=== PATIENT | female | born 2000 | race Caucasian/White ===

== ENCOUNTER 2022-11-07 07:56 | Day surgery (SDC) | payer MEDICAID, SELFPAY ==
--- NOTE | 2022-11-07 | IMM_PTH ---
PATIENT: PARAG MICHELE [place] [facility] [id number] AGE/SX: 22/F ROOM: RE11/07/[address]: Dr. Martir Ellison MD : 2000 BED: DIS: 11/07/2022 SPEC #: [id number] RECD: 11/10/22 13:42 STATUS: SOUPatrick REQ #: [id number] DORETHA: 11/07/22 00:[address]: Martir Ellison DEPT: IMMUNOHISTOCHEMISTRY RECD BY: Onelia Azevedo ENTERED: 11/10/22 13:46 SP TYPE: IMMUNO OTHR DR: No Primary Care Phys Tissues: A - Skin of leg, NOS D - Skin of leg, NOS Procedures: SMA (add) CD31 (add) CD34 (add) DESMIN (add) KI-67 (add) FACTOR VIII (add) MELAN-A (add) Vimentin (initial) S-100 (add) PHYSICIAN & INSTITUTION [address] [address] SPECIMEN INFORMATION: Tissue Source: A - Posterior right leg lesion, D - Deeper margin of anterior lesion, right distal leg Clinical Info: Leg lesions Specimen Number: [id number] A & D CPT code: 64492 x2, 44636 x16 METHODOLOGY: Deparaffinized sections of prefer/formalin-fixed tissue or PAP/DQ stained slides are incubated with monoclonal/polyclonal antibodies/oligonucleotide probes. Localization is made via biotin free immunoperoxidase method. Appropriate controls are performed and reacted as expected. Results on target cell population are indicated in the following table: RESULTS: ANTIBODY / CLONE RESULT Block A Vimentin (V9) positive CD31 (MILO/70A) negative Factor VIII (R Ag) negative CD34 (QBEnd-10) negative Actin (1A4) positive, weak Desmin (CE-R-11) negative Melan A (A103) negative S-100 (4C4.9) negative Ki-67 (30-9) positive, very low, <1% Block D Vimentin (V9) positive CD31 (MILO/70A) negative Factor VIII (R Ag) negative CD34 (QBEnd-10) negative Actin (1A4) positive, weak Desmin (CE-R-11) negative Melan A (A103) negative S-100 (4C4.9) negative Ki-67 (30-9) positive, very low, <1% These tests were developed and their performance characteristics determined by [facility]. They may not have been cleared or approved by the U.S. Food and Drug Administration. The FDA has determined that such clearance or approval is not necessary. The above immunohistochemical/dualISH markers are ordered and reviewed by the Pathologist. INTERPRETATION: A. Posterior right leg lesion, shave biopsy: Dermatofibroma. D. Deeper margin of anterior lesion, right distal leg, biopsy: Dermatofibroma. SJ:olga lidia 11/12/2022
--- NOTE | 2022-11-07 | LES_PTH ---
PATIENT: PARAG MICHELE LOC: [facility] – [place] U#:[id number] AGE/SX: 22/F ROOM: RE11/07/[address]: Dr. Martir Ellison MD : 2000 BED: DIS: 11/07/2022 SPEC #: [id number] RECD: 11/07/22 10:59 STATUS: YURIY RAÚL #: [id number] DORETHA: 11/07/22 00:[address]: Martir Ellison DEPT: SURGICAL PATHOLOGY RECD BY: Onelia Azevedo ENTERED: 11/07/22 12:16 SP TYPE: Lesion OTHR DR: No Primary Care Phys Tissues: A - Skin of leg, NOS B - Skin of leg, NOS C - Skin of leg, NOS D - Skin of leg, NOS Procedures: Frozen Section (charge) Surgery Specimen Level IV HEADER OPERATION: Excision lesions right anterior leg, right lateral leg PRE-OP DIAGNOSIS: 8 mm erythematous ulcerated lesion right anterior distal leg; 7 mm saldaña lesion right lateral distal leg; 7 mm saldaña lesion right posterior distal leg TISSUE SUBMITTED: A - Posterior right leg lesion, FS, B - Lateral right leg lesion, FS, C - Anterior right leg lesion, FS, D - Deep margin anterior right distal leg lesion, FS FROZEN SECTION DIAGNOSIS A. Posterior right leg lesion, shave biopsy: Spindle cell lesion, consistent with dermatofibroma. Deep margin is positive for lesion. B. Lateral right leg lesion, shave biopsy: Dermal fibrosis and hyperkeratosis. C. Anterior right leg lesion, shave biopsy: Dermal fibrosis and hyperkeratosis. Negative for carcinoma. D. Deeper margin of anterior lesion, right distal leg: Dermatofibroma. SMITA:olga lidia 11/07/2022 Case has been reviewed in consultation with Dr. Moreno who concurs with the above diagnosis. IDC:AM MICROSCOPIC DIAGNOSIS A. Posterior right leg lesion, shave biopsy: Dermatofibroma. See comment. B. Lateral right leg lesion, shave biopsy: Dermal fibrosis. Negative for carcinoma. C. Anterior right leg lesion, shave biopsy: Dermal fibrosis. Negative for carcinoma. D. Deeper margin of anterior lesion, right distal leg, biopsy: Dermatofibroma. See comment. SMITA:olga lidia 11/10/2022 COMMENT A. The lesion is present in the deep margin of the specimen. Immunohistochemistry ([id number]) supports the above diagnosis. D. Immunohistochemistry ([id number]) supports the above diagnosis. MICROSCOPIC DESCRIPTION Slides are reviewed. GROSS DESCRIPTION A - Received fresh for frozen section diagnosis labeled with the patient's name is a specimen designated posterior right leg lesion. The specimen consists of a piece of saldaña-white skin measuring 1.0 x 0.7 x 0.1 cm. The specimen is inked, serially sectioned and submitted entirely in one cassette for frozen section diagnosis. / : 11/07/2022 B - Received fresh for frozen section diagnosis labeled with the patient's name is a specimen designated lateral right leg lesion. The specimen consists of a piece of saldaña-white skin measuring 1.0 x 0.7 x 0.1 cm. The specimen is inked, serially sectioned and submitted entirely in one cassette for frozen section diagnosis. / : 11/07/2022 C - Received fresh for frozen section diagnosis labeled with the patient's name is a specimen designated anterior right leg lesion. The specimen consists of a piece of saldaña-white skin measuring 1.0 x 1.0 x 0.1 cm. The specimen is inked, serially sectioned and submitted entirely in one cassette for frozen section diagnosis. / : 11/07/2022 D - Received fresh for frozen section diagnosis labeled with the patient's name is a specimen designated deep margin anterior right distal leg lesion. The specimen consists of a piece of saldaña soft tissue measuring 1.0 x 0.5 x 0.1 cm. The specimen is inked, serially sectioned and submitted entirely in one cassette for frozen section diagnosis. / : 11/07/2022 TC:1 CPT: 55718 x4, 36699 x4
[2022-11-07 08:33] VITALS: BP 112/70; PULSE 78; RESP 16; TEMP 37.2; O2SAT 100; BMI 22.4
[2022-11-07 08:34] LABS: Internal QC Validated? YES +Cl - CLEAR BKGD; Pregnancy, Urine Negative Negative
[2022-11-07] MEDS: Lactated Ringers 1,000 ML 15 ML IV ×2 (08:44→11:58)
--- NOTE | 2022-11-07 09:32 | HP.PCM_ITS ---
History and Physical Date of Admission: 11/07/22 Allergies No Known Drug Allergies Allergy (Unknown, Verified 09/11/22 14:14) Other Medications NK 09/11/22 [History Confirmed 09/11/22] Is last menstrual period known: Yes Patient : No PFSH Medical History Basal cell carcinoma Dermatofibroma Neoplasm of skin of lower leg No pertinent past medical history Smoker Surgical History No pertinent past surgical history Family History Other No pertinent family history Social History Smoking Status: Current every day smoker counseling given: provider counseling and counseling >3 minutes alcohol intake: never substance use type: does not use How many days of moderate to strenuous exercise, like a brisk walk, did you do in the last 7 days: 5 frequency: 5-6 times per week HPI evaluation for TBSE Details: HISTORY OF PRESENT ILLNESS 22 year old woman presents for evaluation for TBSE. She has concerns about lesions on her right distal leg involving the anterior aspect, the lateral aspect, and the posterior aspect. These three lesions have increased in size over the last several months. Sometimes they will itch and she will scratch them which causes the anterior lesion to bleed occasionally. She denies trauma. She denies fever. She denies recent infection. She denies drainage except when she scratches them. She presents at this time for further evaluation and treatment. REVIEW OF SYSTEMS General - Denies fever, fatigue, and weight loss. Eyes - Denies cataracts and glaucoma. ENT - Denies nasal congestion and sore throat. Endocrine - Denies excessive thirst and urination. Skin - Denies skin cancer. Has enlarging lesions right distal leg x3. Musculoskeletal - Denies joint pain, joint stiffness, weakness of muscles and joints, back pain, and arthritis. Neuro - Denies headaches. Cardiovascular - Denies chest pain, fatigue, and shortness of breath with exertion. Psych - Denies anxiety and depression. Respiratory - Denies chronic cough and shortness of breath. Patient is a smoker. Gastrointestinal - Denies nausea, vomiting, diarrhea, and constipation. Hematologic - Denies abnormal bruising and bleeding. Genitourinary - Denies hematuria and urinary frequency. PHYSICAL EXAMINATION General - Alert and Oriented. HEENT - PERRL. EOMI. Throat is clear. No suspicious lesions noted. Neck - Supple and nontender. No cervical adenopathy. No suspicious lesions noted. Lungs - Clear to auscultation. Heart - Regular rate and rhythm. Abdomen - Soft and nondistended. Extremities - FROM. No axillary adenopathy. Radial pulses are palpable. No inguinal adenopathy. Dorsalis pedis pulses are palpable. On the right anterior distal leg is an erythematous lesion that measures 8 mm. Has some nodularity. Central area has some ulceration. Has irregular borders. Lesion is nontender. Clinically a basal cell carcinoma. On the right lateral distal leg is a tannish lesion that is firm and measures 7 mm. Has irregular borders. No ulceration. Lesion is nontender. On the right posterior distal leg is a tannish lesion that is firm and measures 7 mm. Has irregular borders. No ulceration. Lesion is nontender. No other suspicious lesions noted. Neuro - CN II-XII grossly intact. Psych - Normal mood and affect. ASSESSMENT 1. 8 mm erythematous ulcerated lesion right anterior distal leg, clinically basal cell carcinoma. 2. 7 mm tannish lesion right lateral distal leg, clinically dermatofibroma. 3. 7 mm tannish lesion right posterior distal leg, clinically dermatofibroma. 4. Smoker. PLAN Medical records reviewed. She has concerns about lesions on her right distal leg. The anterior lesion is clinically a basal cell carcinoma. The lateral lesion and posterior lesion are clinically dermatofibromas. Recommend operative intervention to excise these three lesions and send them to Pathology for analysis to rule out carcinoma and to establish a diagnosis. If carcinoma is present, then further excision will be done with skin graft reconstruction, possible skin flap reconstruction. If actinic damage is seen on the pathology specimen, will treat with Aldara cream as an outpatient which involves applying it to the lesions daily at night and in the morning wipe off the excess cream. Do this 5 days per week with weekends off for 6 weeks. Surgery can be done on an outpatient basis under local anesthesia and IV carmine tion. Patient was informed of the risks and complications of the procedure including alternatives to surgery. These were discussed with the patient personally. Patient voices understanding and wishes to proceed. Some of the risks and complications were included in a form from the [employer]. Potential risks and complications included but not inclusive of bleeding, infe ction, hematoma, bruising, swelling, loss of sensation to skin, partial or complete loss of skin flap and/or graft, wound breakdown, need for wound care, poor scarring, poor aesthetic outcome, intra operative cardiac or neurologic events, DVT, PE, and reaction to anesthesia. Encouraged patient to stop smoking as it may have deleterious effects on wound healing. It was recommended to the patient to use sunscreen when outside to help minimize darkening of the healing scars after surgery. Patient will be in [place] until 10/02/22. Will schedule the surgery after that. Coding Level of Care Code Off vis,new,level 4 Diagnoses Neoplasm of skin of lower leg D49.2 Basal cell carcinoma C44.91 Dermatofibroma D23.9 Smoker F17.200 Assessment and Plan (No Qualifiers) Assessment and Plan (1) Neoplasm of skin of lower leg: Status: Chronic Comment: 8 mm erythematous ulcerated lesion right anterior distal leg, clinically basal cell carcinoma 7 mm tannish lesion right lateral distal leg, clinically dermatofibroma 7 mm tannish lesion right posterior distal leg, clinically dermatofibroma (2) Basal cell carcinoma: Status: Chronic Comment: 8 mm erythematous ulcerated lesion right anterior distal leg, clinically basal cell carcinoma (3) Dermatofibroma: Status: Chronic Comment: 7 mm tannish lesion right lateral distal leg, clinically dermatofibroma 7 mm tannish lesion right posterior distal leg, clinically dermatofibroma (4) Smoker: Status: Chronic
[2022-11-07] MEDS: Cefazolin 2 GM in 0.9% Normal Saline 100 ML IV (10:09)
[2022-11-07] MEDS: Lidocaine 1% /Epi 1:100 (20ml) 20 ML Vial (10:50)
[2022-11-07] MEDS: Mupirocin Ointment 22gm Tube 1 APPLIC (11:33)
[2022-11-07] MEDS: Silver Nitrate (BKC) 1 EACH (11:34)
[2022-11-07 11:50] VITALS: BP 104/58; BP 112/70; PULSE 81; RESP 18; O2SAT 100
[2022-11-07 11:51] VITALS: BP 109/61; BP 112/70; PULSE 84; RESP 18; TEMP 36.5; O2SAT 100
[2022-11-07 12:00] VITALS: BP 112/70; BP 114/65; PULSE 76; RESP 18; TEMP 36.8; O2SAT 100
--- NOTE | 2022-11-07 12:40 | OP.PCM_ITS ---
Problems Associated Problem List Diagnoses (1) Neoplasm of skin of lower leg: (2) Dermatofibroma: (3) Smoker: Report of Operation Date of Procedure: 11/07/22 Pre-Operative Diagnosis: 1. 8 mm erythematous ulcerated lesion right anterior distal leg, clinically basal cell carcinoma. 2. 7 mm tannish lesion right lateral distal leg, clinically dermatofibroma. 3. 7 mm tannish lesion right posterior distal leg, clinically dermatofibroma. 4. Smoker. Post-Operative Diagnosis: 1. 8 mm dermatofibroma right anterior distal leg. 2. 7 mm dermatofibroma right lateral distal leg. 3. 7 mm dermatofibroma right posterior distal leg. 4. Smoker. Surgery/Procedure Performed:: 1. Intradermal excision 8 mm dermatofibroma right anterior distal leg. 2. Intradermal excision 7 mm dermatofibroma right lateral distal leg. 3. Intradermal excision 7 mm dermatofibroma right posterior distal leg. 4. Smoker. Description of Surgical Findings:: 22 year old woman presents for evaluation for TBSE. She has concerns about lesions on her right distal leg involving the anterior aspect, the lateral aspect, and the posterior aspect. These three lesions have increased in size over the last several months. Sometimes they will itch and she will scratch them which causes the anterior lesion to bleed occasionally. She denies trauma. She denies fever. She denies recent infection. She denies drainage except when she scratches them. Patient was informed of the risks and complications of the procedure including alternatives to surgery. These were discussed with the patient personally. Patient voices understanding and wishes to proceed. Some of the risks and complications were included in a form from the [employer]. Potential risks and complications included but not inclusive of bleeding, infection, seroma, hematoma, bruising, swelling, loss of sensation to skin, partial or complete loss of skin flap and/or skin graft, wound breakdown, need for wound care, poor scarring, poor aesthetic outcome, intra operative cardiac or neurologic events, DVT, PE, and reaction to anesthesia. Encouraged patient to stop smoking as it may have deleterious effects on wound healing. Frozen section - right anterior distal leg - dermatofibroma and no carcinoma seen. Frozen section - right lateral distal leg - dermatofibroma and no carcinoma seen. Frozen section - right posterior distal leg - dermatofibroma and no carcinoma seen. Frozen section - deeper margin right anterior distal leg - dermatofibroma and no carcinoma seen. Surgeon: Martir Ellison MD set up and lay out inspector: None Type of Anesthesia: Local MAC (xylocaine with epinephrine and IV sedation.) Anesthesiologist: Donovan Medeiros MD and Joan Weir CRNA Specimen's removed: 1. Erythematous ulcerated lesion right anterior distal leg, clinically basal cell carcinoma, to Pathology as a frozen section. 2. Tannish lesion right lateral distal leg, clinically dermatofibroma, to Pathology as a frozen section. 3. Tannish lesion right posterior distal leg, clinically dermatofibroma, to Pathology as a frozen section. 4. Additional deeper margin right anterior distal leg to Pathology as a frozen section. Drains: None. Estimated Blood Loss (mL): 2. Description of Procedure: Patient was taken to OR in supine position and was given IV sedation. The right leg was prepped and draped in the usual fashion. SCD's were placed for DVT prophylaxis. Perioperative antibiotics were given intravenously. The lesions right leg (anterior distal, lateral distal, and posterior distal) were infiltrated with xylocaine and epinephrine. After waiting 5 minutes for the anesthetic to take effect, These three lesions were excised in an intradermal fashion and sent to Pathology as a frozen section for analysis to rule out carcinoma. Frozen section revealed all three lesions were dermatofibromas and no carcinoma seen. It was noted that there was more lesion available on the ant erior distal leg that I also excised in an intradermal fashion and sent to Pathology as a frozen section for analysis to rule out carcinoma. Clinically the anterior distal leg lesion looked very suspicious for a basal cell carcinoma. Since the frozen section was benign, I wanted to make sure that a focus of carcinoma is not present in the deeper portion of the lesion. That is why an additional deeper frozen section was sent to Pathology. The additional frozen section did not show any carcinoma. So no further excision will be done today. Using silver nitrate I chemically cauterized these three lesions on the right distal leg. Antibiotic ointment was applied to the wounds followed by 4x4 gauze and followed with an renan wrap for compression. Patient tolerated the procedure well and was sent to PACU in satisfactory condition. Patient will be sent home on antibiotics and pain medication. She will keep her right leg elevated during the initial postoperative period. Patient will followup in a week for a wound check and for discussion of the pathology report. Being dermatofibromas, the patient will need yearly TBSE. If any changes occur in these dermatofibromas, then will need excision followed by reconstruction with skin grafts or skin flaps. Grafts/Implants Used: None. Procedure Start Time: 10:46 Procedure Stop Time: 11:40 Complications None. Admit VTE Documentation VTE Present on Admission: No VTE Mechan Device Prophylaxis: SCD's VTE Pharm Prophylaxis ordered?: No Addendum Addendum: Surgery Charges CPT - 84408 ICD-10 - D49.2, D23.9, F17.200 53329 D49.2, D23.9, F17.200 27316 D49.2, D23.9, F17.200
--- NOTE | 2022-11-07 12:40 | PCM.DC ---
Discharge Instructions Diet Discharge Diet: No restrictions Activity Discharge Activity: Return to Normal Activity, May Shower (in two days) and - (elevate right leg when sitting.) May shower in (days): 2 May resume sexual activity in: No Restrictions Weight Bearing Status: Weight bearing as tolerated Keep extremity elevated above heart level: Right Leg (elevate right leg when sitting) Dressing / Incision Call your doctor if your incision/area has: Continuous Slow Oozing, Sudden Increased Bleeding, Increased Pain/ Swelling, Increased Redness, Foul Smelling Discharge and Swelling at the incision site Call your doctor if you observe: Fever of 101 or Higher, Coldness, Increased Pain, Shortness of breath, Chest pain, Calf discomfort and Uncontrolled pain Remove Dressing in: 2 days (may remove the renan wrap when showering in 2 days. Then reapply the renan wrap until seen in the office.) Cleanse incision/area with: - (may get incisions wet in the shower in two days.) Follow Up Care Please Follow Up With: Martir Ellison MD When: one week. call [phone] for appt. Test Results: Test results from this visit will be discussed in further detail at your follow-up appointment, if applicable. Discharge Plan Admission Primary Reason for Your Visit: intradermal excision dermatofibromas right leg Attending Provider: Martir Ellison Primary Care Provider: Care Physician,Maglay Primary Discharge Orders/Prescriptions Prescriptions: New cefadroxil 500 mg capsule 500 mg PO BID Qty: 6 0RF oxycodone-acetaminophen [Percocet] 5-325 mg tablet 1 tab PO BID 3 Days Qty: 6 0RF Rx Instructions: 6 tabs (six) L.acidoph,saliva-B.bif-S.therm [Acidophilus Probiotic Blend] 175 mg capsule 1 cap PO DAILY Qty: 10 0RF Referrals / Follow Up: Care Physician,Magaly Primary [Primary Care Provider] - Disposition Disposition (needs filled in before D/C Order can be placed): Home, Self Care
--- NOTE | 2022-11-07 13:30 | SUR.PHASEII ---
PT HAS BEEN WAITING FOR PRESCRIPTIONS TO BE FILLED BY [facility].
== END 2022-11-07 13:49 | disposition home or self-care (01) ==
LOC: SDC 07:58 → AC 08:00
PROVIDERS: Anesthesiology; Referring Provider Surgery; Visit Provider Surgery
PROC: (CPT 11301; principal; 2022-11-07 09:10)
DX: D49.2 Neoplasm of unspecified behavior of bone, soft tissue, and skin (principal); D23.71 Other benign neoplasm of skin of right lower limb, including hip; L90.5 Scar conditions and fibrosis of skin; L85.9 Epidermal thickening, unspecified; F17.200 Nicotine dependence, unspecified, uncomplicated
CPT/HCPCS: 11301; 00300; 81025; 88305; 88331; 88341; 88342; J7120; J2405